=== PATIENT | male | born 1970 | race Caucasian/White ===

== ENCOUNTER → 2018-11-03 | Outpatient (CLI) | payer BC ==
[2012-06-08 11:06] VITALS: BP 133/68
== END ==
LOC: RAD 14:26
DX: Z00.00 Encounter for general adult medical examination without abnormal findings (principal); Z13.1 Encounter for screening for diabetes mellitus; Z13.6 Encounter for screening for cardiovascular disorders; Z23 Encounter for immunization; Q67.5 Congenital deformity of spine; M18.9 Osteoarthritis of first carpometacarpal joint, unspecified; M17.12 Unilateral primary osteoarthritis, left knee

== ENCOUNTER → 2018-11-09 | Outpatient (CLI) | payer BC ==
[2012-06-08 11:06] VITALS: BP 133/68
[2018-11-09 10:09] LABS: ALBUMIN 4.4 g/dL (3.5-5.0); CALCIUM 9.7 mg/dL (8.4-10.2); POTASSIUM 4.4 mmol/L (3.6-5.0); TOTAL BILIRUBIN 0.6 mg/dL (0.2-1.3); TOTAL PROTEIN 7.8 g/dL (6.3-8.2)
== END ==
LOC: RAD 08:50 → LAB 08:50 → RAD 09:00
PROVIDERS: Family Medicine
DX: Z00.00 Encounter for general adult medical examination without abnormal findings (principal); Z13.6 Encounter for screening for cardiovascular disorders; Z13.1 Encounter for screening for diabetes mellitus; Z23 Encounter for immunization; M79.646 Pain in unspecified finger(s); M25.562 Pain in left knee; Q67.5 Congenital deformity of spine; R22.1 Localized swelling, mass and lump, neck

== ENCOUNTER → 2018-11-17 | Outpatient (CLI) | payer BC ==
[2012-06-08 11:06] VITALS: BP 133/68
== END ==
LOC: RAD 13:56
DX: M25.531 Pain in right wrist (principal); M25.532 Pain in left wrist

== ENCOUNTER → 2018-11-28 | Outpatient (CLI) | payer BC ==
[2012-06-08 11:06] VITALS: BP 133/68
[2018-11-28 15:23] LABS: CALCIUM 9.4 mg/dL (8.4-10.2); POTASSIUM 4.2 mmol/L (3.6-5.0)
[2018-11-28 22:34] LABS: C-REACTIVE PROTEIN XXX
[2018-11-29 01:32] LABS: ANA SCREEN with REFLEX Negative (Negative)
== END ==
LOC: LAB 14:48
PROVIDERS: Family Medicine
DX: M19.90 Unspecified osteoarthritis, unspecified site (principal); M25.562 Pain in left knee; M25.531 Pain in right wrist; E87.1 Hypo-osmolality and hyponatremia

== ENCOUNTER → 2020-01-14 | Outpatient (CLI) | payer BC ==
[2012-06-08 11:06] VITALS: BP 133/68
== END ==
LOC: RAD 16:22
DX: M19.012 Primary osteoarthritis, left shoulder (principal)

== ENCOUNTER → 2020-09-01 | Outpatient (CLI) | payer BC ==
[2012-06-08 11:06] VITALS: BP 133/68
[2020-09-01 15:17] LABS: HEMATOCRIT 48.4 % (42.0-52.0); HEMOGLOBIN 16.5 g/dL (13.5-18.0); MEAN CELL VOLUME 102 fl (78-100); MEAN CORPUSCULAR HEMOGLOBIN 35 pg (27-31); MEAN CORPUSCULAR HGB CONC 34 g/dL (33-37); PLATELET COUNT 219 K/mm3 (130-400); RED BLOOD COUNT 4.73 M/mm3 (4.20-5.60); RED CELL DISTRIBUTION WIDTH 13.8 % (11.5-14.5); WHITE BLOOD COUNT 11.5 K/mm3 (4.8-10.8)
[2020-09-01 15:36] LABS: LYMPHOCYTE 15 % (20-51); MONOCYTE 13 % (3-10); NEUTROPHILS 65 % (42-75)
[2020-09-01 16:01] LABS: POTASSIUM 3.7 mmol/L (3.5-5.1)
[2020-09-01 16:02] LABS: ALBUMIN 4.1 g/dL (3.5-5.0)
[2020-09-01 16:03] LABS: CALCIUM 9.1 mg/dL (8.3-10.5)
[2020-09-01 16:04] LABS: TOTAL PROTEIN 7.4 g/dL (6.4-8.3)
[2020-09-01 16:06] LABS: TOTAL BILIRUBIN 0.7 mg/dL (0.2-1.2)
== END ==
LOC: LAB 15:01
PROVIDERS: Family Medicine
DX: Z00.00 Encounter for general adult medical examination without abnormal findings (principal); Z12.11 Encounter for screening for malignant neoplasm of colon; E78.5 Hyperlipidemia, unspecified; D72.829 Elevated white blood cell count, unspecified; R74.01 Elevation of levels of liver transaminase levels

== ENCOUNTER → 2020-09-09 | Outpatient (CLI) | payer BC ==
[2012-06-08 11:06] VITALS: BP 133/68
== END ==
LOC: RAD 07:56
DX: R74.01 Elevation of levels of liver transaminase levels (principal); R10.11 Right upper quadrant pain

== ENCOUNTER 2022-04-09 20:02 | Emergency (ER) | payer OTHER ==
[~2022-04-09] VITALS: Ht 170.2 cm; Wt 79.1 kg
[2022-04-09] MEDS ORDERED: ALPRAZOLAM0.5 MG PO ×2 (20:18→20:19)
[2022-04-09] MEDS ORDERED: CEPHALEXIN500 M1 PO (21:10)
[2022-04-09 21:18] VITALS: BP 185/125
== END 2022-04-09 21:18 | disposition home or self-care (01) ==
LOC: ED 20:02
DX: S81.811A Laceration without foreign body, right lower leg, initial encounter (principal); W22.8XXA Striking against or struck by other objects, initial encounter; Y92.59 Other trade areas as the place of occurrence of the external cause; Y99.0 Civilian activity done for income or pay

== ENCOUNTER → 2022-04-20 | Outpatient (CLI) | payer OTHER ==
[~2022-04-20] MED LIST: ALPRAZOLAM0.5 MG PO; CEPHALEXIN500 M1 PO
== END ==
LOC: LAB 14:11
DX: B99.9 Unspecified infectious disease (principal)

== ENCOUNTER 2023-07-13 09:09 | Emergency (ER) | payer OTHER ==
[~2023-07-13] VITALS: Ht 180.3 cm; Wt 82.7 kg
[2023-07-13] MEDS ORDERED: METOPROLOL SUCC25 M1 PO (09:15)
[2023-07-13] MEDS ORDERED: OMEPRAZOLE40 MG PO (09:15)
[2023-07-13] MEDS ORDERED: ATORVASTATIN CA40 MG PO (09:15)
[2023-07-13] MEDS ORDERED: NORVASC 10MG10 MG PO (09:16)
[2023-07-13] MEDS ORDERED: LEVETIRACETAM500 M2 PO (09:16)
[2023-07-13] MEDS ORDERED: ESCITALOPRAM10 MG PO (09:16)
[2023-07-13] MEDS ORDERED: FOLIC ACID1 MG (09:16)
[2023-07-13] MEDS ORDERED: GOOD SENSE ASPI81 M1 PO (09:16)
[2023-07-13] MEDS ORDERED: LISINOPRIL10 MG PO (09:17)
[2023-07-13] MEDS ORDERED: ESCITALOPRAM5 MG PO (09:17)
[2023-07-13 09:31] LABS: HEMATOCRIT 36.5 % (42.0-52.0); HEMOGLOBIN 12.8 g/dL (13.5-18.0); MEAN CELL VOLUME 101 fl (78-100); MEAN CORPUSCULAR HEMOGLOBIN 36 pg (27-31); MEAN CORPUSCULAR HGB CONC 35 g/dL (33-37); MEAN PLATELET VOLUME 10.2 fl (7.4-10.4); PLATELET COUNT 302 K/mm3 (130-400); RED BLOOD COUNT 3.61 M/mm3 (4.20-5.60); RED CELL DISTRIBUTION WIDTH 12.5 % (11.5-14.5); WHITE BLOOD COUNT 15.6 K/mm3 (4.8-10.8)
[2023-07-13 09:44] LABS: CALCIUM 8.7 mg/dL (8.3-10.5)
[2023-07-13 10:02] LABS: LYMPHOCYTE 34 % (20-51); MONOCYTE 9 % (3-10); NEUTROPHILS 55 % (42-75)
[2023-07-13 10:47] VITALS: BP 109/79
== END 2023-07-13 10:05 | disposition home or self-care (01) ==
LOC: ED 09:09
PROVIDERS: Nurse Practitioner
DX: J95.01 Hemorrhage from tracheostomy stoma (principal)

== ENCOUNTER → 2023-08-09 | Outpatient (CLI) | payer OTHER ==
[~2023-08-09] MED LIST changes: +ATORVASTATIN CA40 MG PO; +ESCITALOPRAM10 MG PO; +ESCITALOPRAM5 MG PO; +FOLIC ACID1 MG; +GOOD SENSE ASPI81 M1 PO; +LEVETIRACETAM500 M2 PO; +LISINOPRIL10 MG PO; +METOPROLOL SUCC25 M1 PO; +NORVASC 10MG10 MG PO; +OMEPRAZOLE40 MG PO
== END ==
LOC: LAB 12:40
DX: E87.1 Hypo-osmolality and hyponatremia (principal)

== ENCOUNTER → 2023-08-10 | Outpatient (CLI) | payer OTHER ==
[2023-08-10 18:13] LABS: ALBUMIN 3.8 g/dL (3.5-5.0)
[2023-08-10 18:15] LABS: TOTAL PROTEIN 6.9 g/dL (6.4-8.3)
[2023-08-10 18:17] LABS: TOTAL BILIRUBIN 0.6 mg/dL (0.2-1.2)
== END ==
LOC: LAB 17:39
PROVIDERS: Nurse Practitioner
DX: E87.1 Hypo-osmolality and hyponatremia (principal)

== ENCOUNTER → 2023-08-18 | Outpatient (CLI) | payer BC ==
[~2023-08-18] VITALS: Ht 177.8 cm; Wt 76.8 kg
[2023-08-18 11:37] VITALS: BP 126/76
[2023-08-18 16:23] VITALS: BP 120/76
--- NOTE | 2023-08-18 16:24 | NUR ---
PT. DISCHARGED TO HOME AFTER IVFS AND 4 HOUR URINE OUTPUT RECORDING. URINE SAMPLE OBTAINED AND TAKEN TO LAB. PT. DENIES ANY QUESTIONS OR CONCERNS.
== END ==
LOC: AMSURD 11:06
DX: E87.1 Hypo-osmolality and hyponatremia (principal)
CPT/HCPCS: J7030

== ENCOUNTER → 2023-08-22 | Outpatient (CLI) | payer BC ==
[2023-08-22 15:34] LABS: ALBUMIN 4.5 g/dL (3.5-5.0)
[2023-08-22 15:35] LABS: CALCIUM 9.6 mg/dL (8.3-10.5)
[2023-08-22 15:37] LABS: TOTAL PROTEIN 7.7 g/dL (6.4-8.3)
[2023-08-22 15:38] LABS: TOTAL BILIRUBIN 0.4 mg/dL (0.2-1.2)
[2023-08-24 17:03] LABS: FOLATE (FOLIC ACID) 11.8 ng/mL (2.0-20.0)
== END ==
LOC: LAB 15:06
PROVIDERS: Nurse Practitioner
DX: E87.1 Hypo-osmolality and hyponatremia (principal); E55.9 Vitamin D deficiency, unspecified